=== PATIENT | male | born 2005 | race Two or more races ===

== ENCOUNTER 2025-07-08 20:56 | Emergency (ER) | payer SELFPAY ==
[~2025-07-08] VITALS: Ht 172.7 cm; Wt 86.4 kg
[2025-07-08] MEDS: ONDANSETRON ODT 4 MG TAB PO ONE (21:30)
[2025-07-08] MEDS: DICYCLOMINE HCL (10MG/ML) 2 ML AMPULE IM ONE (21:30)
[2025-07-08] MEDS ORDERED: ZOFR4T PO (23:06)
[2025-07-08] MEDS ORDERED: ACET500T58 PO (23:06)
[2025-07-08] MEDS ORDERED: DICY10CA PO (23:06)
--- NOTE | 2025-07-08 23:07 | ED.PDOC ---
GI ASSESSMENT HPI Comments Patient is a obese 19-year-old male who arrives the ED today for evaluation of intermittent abdominal pain with intermittent nausea for the past few days. Patient did have two vomiting events. Patient states the symptoms came on a couple of days ago and have abdomen flowed since. Patient states possible subjective fever. Patient denies any recent travel or new food sources. Patient was mildly hypertensive on arrival. Chief Complaint: Diarrhea Time Seen by MD: 21:04 Reviewed Notes: Nurses Notes Allergies: Coded Allergies: NO KNOWN ALLERGIES (Unverified , 07/08/25) Information Source: Patient, Friend Mode of Arrival: Ambulatory Timing: Days Duration: Intermittent Prehospital treatment: Treatment Quality: Aching, Cramping Vomitus: Food Particles, Soft, Watery Severity: Mild Recent: None Recent Hx of: None Pain Location: Diffuse, Epigastric Modifying Factors: Food Associated sign and symptoms: Nausea, Vomiting, Abdominal Pain Past Medical History PAST MEDICAL HISTORY: Denies Surgical History: Denies all surgeries Family History Family History: Reviewed,noncontributory to illness, No family hx of Cancer, No family hx of DM, No family hx of Heart meg, No family hx of HTN, No family hx ofKidney meg, No family hx of Liver meg, No family hx of Lung meg, No family hx of Stroke Social History Smoker: Non-Smoker Alcohol: Denies ETOH Use Drugs: Denies Drug Use Lives In: Home Constitutional: denies: chills, diaphoresis, fatigue, fever, malaise, sweats, weakness, others EENTM: denies: blurred vision, double vision, ear bleeding, ear discharge, ear drainage, ear pain, ear ringing, eye pain, eye redness, hearing loss, mouth pain, mouth swelling, nasal discharge, nose bleeding, nose congestion, nose pain, photophobia, tearing, throat pain, throat swelling, voice changes, others Respiratory: denies: cough, hemoptysis, orthopnea, SOB at rest, shortness of breath, SOB with excertion, stridor, wheezing, others Cardiovascular: denies: chest pain, dizzy spells, diaphoresis, Dyspnea on exertion, edema, irregular heart beat, left arm pain, lightheadedness, palpitations, PND, syncope, others Gastrointestinal: reports: abdominal pain, nausea, vomiting; denies: abdomen distended, blood streaked bowels, constipated, diarrhea, dysphagia, difficulty swallowing, hematemesis, melena, poor appetite, poor fluid intake, rectal bleeding, rectal pain, others Genitourinary: denies: burning, dysuria, flank pain, frequency, hematuria, incontinence, penile discharge, penile sore, pain, testicle pain, testicle swelling, urgency, others Neurological: denies: dizziness, fainting, headache, left sided numbness, left sided weakness, numbness, paresthesia, pre-existing deficit, right sided numbness, right sided weakness, seizure, speech problems, tingling, tremors, weakness, others Musculoskeletal: denies: back pain, gout, joint pain, joint swelling, muscle pain, muscle stiffness, neck pain, others Integumetry: denies: bruises, change in color, change in hair/nails, dryness, laceration, lesions, lumps, rash, wounds, others Allergic/Immunocompromised: denies: Difficulty Healing, Frequent Infections, Hives, Itching, others Hematologic/Lymphatic: denies: anemia, blood clots, easy bleeding, easy bruising, swollen glands, others Endocrine: denies: excessive hunger, excessive sweating, excessive thirst, excessive urination, flushing, intolerance to cold, intolerance to heat, unexplained weight gain, unexplained weight loss, others Psychiatric: denies: anxiety, bipolar disorder, depression, hopeless, panic disorder, schizophrenia, sleepless, suicidal, others Physical Exam General Appearance: Mild Distress (Patient was in moderate distress due to very mild abdominal pain at time of evaluation. Patient did not look toxic.), Normal HEENT: Normal ENT Inspection, Pharynx Normal, TMs Normal Neck: Full Range of Motion, Non-Tender, Normal, Normal Inspection Respiratory: Chest Non-Tender, Lungs Clear, No Accessory Muscle Use, No Respiratory Distress, Normal Breath Sounds Cardiovascular: No Edema, No JVD, No Murmur, No Gallop, Normal Peripheral Pulses, Regular Rate/Rhythm Breast Exam: Deferred Gastrointestinal: Other (Very mild diffuse epigastric tenderness to palpation. No pulsatile masses. Difficult to assess due to body habitus.) Genitalia: Deferred Pelvic: Deferred Rectal: Deferred Extremities: No calf tenderness, Normal capillary refill, Normal inspection, Normal range of motion, Non-tender, No pedal edema Neurologic: Alert, No Motor Deficits, Normal Affect, Normal Mood, No Sensory Deficits Cerebellar Function: NOT DONE Reflexes: NOT DONE Skin: Dry, Normal Color, Warm Lymphatic: No Adenopathy Was a procedure done? Was a procedure done?: No GI differential Dx Differential Diagnosis: Other (Viral gastroenteritis, viral illness) X-Ray, Labs, Meds, VS Vital Signs Date Time Temp Pulse Resp B/P (MAP) Pulse Ox O2 Delivery O2 Flow Rate FiO2 07/08/25 20:58 98.2 73 17 145/103 97 98.2 X-Ray, Labs, Meds, VS Comment Spent time discussing the patient's concerns with him. Advised that without a fever it does not appear that there is a acute concern. I believe the patient is suffering from a viral gastroenteritis. Patient was seen medication prior to discharge. Advised patient utilize medication as needed as well as good hydration and healthy nutrition for the next few days. Time of 1ST Reevaluation: 23:02 Reevaluation 1ST: Improved Consultation: PCP Patient Education/Counseling: Diagnosis, Treatment Family Education/Counseling: Diagnosis, Treatment SEPSIS Sepsis Screen Date sepsis recognized/suspect: Jul 08, 2025 Time Sepsis recognized/suspect: 2100 Recent Procedure: No On Antibiotic Therapy: No Respiratory Rate >20: No Heart Rate >90: No Temp<36 C (96.8 F) or >38.3 C: No SBP <90 or MAP <65 mmHG: No New Acute Mental Status Change: No Is the patient on CPAP, BIPAP,: No Vital Signs Date Time Temp Pulse Resp B/P (MAP) Pulse Ox O2 Delivery O2 Flow Rate FiO2 07/08/25 20:58 98.2 73 17 145/103 97 98.2 Departure 1 Departure Time of Disposition: 23:05 Impression: Primary Impression: Viral gastroenteritis Disposition: HOME / SELF CARE / HOMELESS Condition: Stable Additional Instructions: Advised patient utilize medication as needed for symptomatic relief as well as good hydration and healthy nutrition for the next few weeks. e-Prescriptions Acetaminophen (Acetaminophen) 500 Mg Tab 500 MG PO Q4HP PRN, #20 TAB Prov: CASEY MARSHALL PAC 07/08/25 Ondansetron Odt 4MG Tab (ZOFRAN PO) 4 Mg Tb 4 MG PO Q6HP PRN, #15 TAB ODT TAB-DISSOLVE IN MOUTH, THEN SWALLOW Prov: CASEY MARSHALL PAC 07/08/25 Dicyclomine Hcl (BENTYL CAPSULE) 10 Mg Cp 1 CAP PO Q6HPRN, #20 CAP 0 Refills Prov: CASEY MARSHALL PAC 07/08/25 Discharged With: Self, Friend Critical Care Note Critical Care Time?: No Stability Stability form required: No Heart Score Heart Score: Heart Score Response (Comments) Value History N/A 0 EKG N/A 0 Age N/A 0 Risk Factors N/A 0 Troponin N/A 0 Total 0 CASEY MARSHALL PAC Jul 08, 2025 23:07
[2025-07-08 23:28] VITALS: BP 108/73; PULSE 73; RESP 20; TEMP 98.2; O2SAT 98
== END 2025-07-08 23:30 | disposition home or self-care (01) ==
LOC: ER 20:56
DX: A08.4 Viral intestinal infection, unspecified (principal); E66.9 Obesity, unspecified
CPT/HCPCS: 96372; 99283; J0500; Q0162